=== PATIENT | female | born 1995 | race Two or more races ===

== ENCOUNTER 2019-02-21 18:29 | Emergency (ER) | payer SELFPAY | END 2019-02-21 21:13 | disposition left against medical advice (07) | LOC: JER 18:29 ==

== ENCOUNTER 2019-05-30 12:35 | Emergency (ER) | payer SELFPAY ==
[2019-05-30 12:43] VITALS: BMI 24.2
--- NOTE | 2019-05-30 13:46 | PDOC ---
History of Present Illness - General Chief Complaint: Pain Stated Complaint: STOMACH PAIN 4 WEEKS Time Seen by Provider: 05/30/19 13:13 History Source: Patient Exam Limitations: No Limitations Past History - Travel Traveled outside of the country in the last 30 days: No Close contact w/someone who was outside of country & ill: No - Past Medical History Allergies/Adverse Reactions: Allergies Allergy/AdvReac Type Severity Reaction Status Date / Time No Known Allergies Allergy Verified 05/30/19 12:43 COPD: No - Psycho Social/Smoking Cessation Hx Smoking History: Never smoked Information on smoking cessation initiated: No Hx Alcohol Use: No Drug/Substance Use Hx: No Review of Systems - Review of Systems Able to Perform ROS?: Yes Comments:: 05/30/19 15:35 CONSTITUTIONAL: Absent: fever, chills, diaphoresis, generalized weakness, malaise, loss of appetite HEENT: Absent: rhinorrhea, nasal congestion, throat pain, throat swelling, difficulty swallowing, mouth swelling, ear pain, eye pain, visual Changes CARDIOVASCULAR: Absent: chest pain, loss of consciousness, palpitations, irregular heart rate, peripheral edema RESPIRATORY: Absent: cough, shortness of breath, dyspnea with exertion, orthopnea, wheezing, stridor, hemoptysis GASTROINTESTINAL: Present: Abdominal pain Absent: abdominal distension, nausea, vomiting, diarrhea , constipation, melena, hematochezia GENITOURINARY: Absent: dysuria, frequency, urgency, hesitancy, hematuria, flank pain, genital pain MUSCULOSKELETAL: Absent: myalgia, arthralgia, joint swelling SKIN: Absent: rash, itching, pallor HEMATOLOGIC/IMMUNOLOGIC: Absent: easy bleeding, easy bruising, lymphadenopathy, frequent infections ENDOCRINE: Absent: unexplained weight gain, unexplained weight loss, heat intolerance, cold intolerance NEUROLOGIC: Absent: headache, focal weakness or paresthesias, dizziness, unsteady gait, seizure, mental status changes, bladder or bowel incontinence PSYCHIATRIC: Absent: anxiety, depression, suicidal or homicidal ideation, hallucinations. Is the patient limited [employer] proficient: No *Physical Exam - Vital Signs Last Vital Signs Temp Pulse Resp BP Pulse Ox 98.1 F 91 H 18 105/71 100 05/30/19 12:41 05/30/19 12:41 05/30/19 12:41 05/30/19 12:41 05/30/19 12:41 - Physical Exam Comments: 05/30/19 15:36 GENERAL: Well developed, well nourished. Awake and alert. No acute distress. HEENT: Normocephalic, atraumatic. PERRLA, EOMI. No conjunctival pallor. Sclera are non- icteric. Moist mucous membranes. Oropharynx is clear. NECK: Supple. Full ROM. No JVD. Carotid pulses 2+ and symmetric, without bruits. No thyromegaly. No lymphadenopathy. CARDIOVASCULAR: Regular rate and rhythm. No murmurs, rubs, or gallops. Distal pulses are 2+ and symmetric. PULMONARY: No evidence of respiratory distress. Lungs clear to auscultation bilaterally. No wheezing, rales or rhonchi. ABDOMINAL: Tenderness palpation of the suprapubic area and left lower quadrant. Soft. Non -distended. No rebound or guarding. No organomegaly. Normoactive bowel sounds. MUSCULOSKELETAL Normal range of motion at all joints. No bony deformities or tenderness. No CVA tenderness. EXTREMITIES: No cyanosis. No clubbing. No edema. No calf tenderness. SKIN: Warm and dry. Normal capillary refill. No rashes. No jaundice. NEUROLOGICAL: Alert, awake, appropriate. Cranial nerves 2-12 intact. No deficits to light touch and temperature in face, upper extremities and lower extremities. No motor deficits in the in face, upper extremities and lower extremities. Normoreflexic in the upper and lower extremities. Normal speech. Toes are down- going bilaterally. Gait is normal without ataxia. PSYCHIATRIC: Cooperative. Good eye contact. Appropriate mood and affect. ED Treatment Course - LABORATORY CBC & Chemistry Diagram: 05/30/19 15:30 05/30/19 15:30 Medical Decision Making - Medical Decision Making 05/30/19 15:36 The patient is a 34-year-old female no past medical history, G1, P0, presents to the ER today after having a positive test at home. She states that she took the test yesterday. Her last menstrual cycle was 05/02/19. She states she has never been before. She notes that she has some lower abdominal fullness and discomfort. This started yesterday. She is not taking any vitamins at this time. Denies fevers, chills, nausea, vomiting, lightheadedness, dizziness. She presents for a evaluation. A/P: Early On exam patient with tenderness to palpation over the suprapubic area. Minimal discomfort over the left lower quadrant. No vaginal bleeding Defer pelvic as patient is not bleeding. Basic labs including beta hCG sent Urine ordered Transvaginal ultrasound completed, pending results. Suspect no fetus to be seen at this time as she is probably 2 to 4 weeks . Explained this to the patient. Signout given to DARBY Schulz. Patient is pending blood, urine and ultrasound results. Will need PCP and PROFESSIONAL SERVICES CONSULTANT as she is new to the area Discharge - Discharge Information Problems reviewed: Yes Clinical Impression/Diagnosis: Early stage of Condition: Stable Disposition: HOME - Follow up/Referral Referrals: Andreia Newton MD [Staff Physician] - Alba Malave CNM [Certified Nurse Monorail Car Operator] - Zofia Infante MD [Staff Physician] - - Patient Discharge Instructions Patient Printed Discharge Instructions: DI for Abdominal Pain -- Early Additional Instructions: As discussed, you must return in 48 hours for a repeat blood test for continued monitoring of your . If you develop any vaginal bleeding, fever, persistent vomiting, or any new or worsening symptoms, please return to the ER. - Post Discharge Activity
[2019-05-30] MEDS ORDERED: ACETAMINOPHEN 325 MG TABLET (FP) PO ONE (13:47)
[2019-05-30 15:52] LABS: BASO % 0.8 % (0-2.0); EOS % 1.3 % (0-4.5); HEMATOCRIT 38.5 % (32.4-45.2); HEMOGLOBIN 12.6 GM/dL (10.7-15.3); LYMPH % 35.5 % (8-40); MCH 29.2 pg (25.7-33.7); MCHC 32.7 g/dl (32.0-36.0); MEAN CELL VOLUME 89.2 fl (80-96); MEAN PLT VOLUME 10.5 fl (7.5-11.1); MONO % 6.4 % (3.8-10.2); PLATELET COUNT 322 K/MM3 (134-434); RBC 4.31 M/mm3 (3.60-5.2); RDW 14.9 % (11.6-15.6)
[2019-05-30 16:01] LABS: INR 1.08 (0.83-1.09); PROTHROMBIN TIME (PATIENT) 12.8 SEC (9.7-13.0)
[2019-05-30 16:19] LABS: ALBUMIN 4.4 g/dl (3.4-5.0); BILIRUBIN,TOTAL 0.4 mg/dL (0.2-1); BLOOD UREA NITROGEN 14.1 mg/dL (7-18); CALCIUM 9.3 mg/dL (8.5-10.1); CREATININE 0.7 mg/dL (0.55-1.3); TOT PROT 7.7 g/dl (6.4-8.2)
[2019-05-30 16:28] VITALS: BP 105/68; PULSE 88; TEMP 97.7
--- NOTE | 2019-05-30 17:03 | PDOC ---
*Physical Exam - Vital Signs Last Vital Signs Temp Pulse Resp BP Pulse Ox 97.7 F 88 18 105/68 95 05/30/19 16:27 05/30/19 16:27 05/30/19 12:41 05/30/19 16:27 05/30/19 16:27 - Physical Exam Comments: 05/30/19 17:02 Sign-out received from outgoing ER provider Claudia. Pt interviewed and examined. Ancillary studies reviewed, awaiting labs. Patient beta 105. Patient likely in very early , will need repeat beta in 48 hours and f/ u with PCP/OB. ED Treatment Course - LABORATORY CBC & Chemistry Diagram: 05/30/19 15:30 05/30/19 15:30 - ADDITIONAL ORDERS Additional order review: Laboratory Results 05/30/19 05/30/19 05/30/19 15:30 15:30 15:30 PT with INR 12.80 INR 1.08 Sodium 136 Potassium 4.0 Chloride 106 Carbon Dioxide 24 Anion Gap 6 L BUN 14.1 Creatinine 0.7 Est GFR (CKD-EPI)AfAm 130.10 Est GFR (CKD-EPI)NonAf 112.25 Random Glucose 86 Calcium 9.3 Total Bilirubin 0.4 AST 8 L ALT 15 Alkaline Phosphatase 51 Total Protein 7.7 Albumin 4.4 Beta HCG, Quant Blood Type A NEGATIVE Antibody Screen Negative 05/30/19 15:30 PT with INR INR Sodium Potassium Chloride Carbon Dioxide Anion Gap BUN Creatinine Est GFR (CKD-EPI)AfAm Est GFR (CKD-EPI)NonAf Random Glucose Calcium Total Bilirubin AST ALT Alkaline Phosphatase Total Protein Albumin Beta HCG, Quant 105.7 Blood Type Antibody Screen 05/30/19 15:30 RBC 4.31 MCV 89.2 MCHC 32.7 RDW 14.9 MPV 10.5 Neutrophils % 56.0 Lymphocytes % 35.5 Monocytes % 6.4 Eosinophils % 1.3 Basophils % 0.8 Discharge - Discharge Information Problems reviewed: Yes Clinical Impression/Diagnosis: Early stage of Condition: Stable Disposition: HOME - Admission No - Follow up/Referral Referrals: Zofia Infante MD [Staff Physician] - Andreia Newton MD [Staff Physician] - Alba Malave CNM [Certified Nurse Tire Repairer] - - Patient Discharge Instructions Patient Printed Discharge Instructions: DI for Abdominal Pain -- Early Additional Instructions: As discussed, you must return in 48 hours for a repeat blood test for continued monitoring of your . If you develop any vaginal bleeding, fever, persistent vomiting, or any new or worsening symptoms, please return to the ER. - Post Discharge Activity
[2019-05-30 17:13] LABS: URINE APPEARANCE CLEAR; URINE BILIRUBIN NEGATIVE (NEGATIVE); URINE COLOR YELLOW; URINE GLUCOSE (UA) NEGATIVE (NEGATIVE); URINE KETONE TRACE (NEGATIVE); URINE LEUK ESTERASE NEGATIVE (NEGATIVE); URINE NITRITE NEGATIVE (NEGATIVE); URINE PROTEIN NEGATIVE (NEGATIVE); URINE UROBILINOGEN 0.2 mg/dL (0.2-1.0)
== END 2019-05-30 17:45 | disposition home or self-care (01) ==
LOC: JER 12:35
DX: O26.91 Pregnancy related conditions, unspecified, first trimester (principal)
CPT/HCPCS: 36415; 76817-TC; 80053; 81003; 84702; 85025; 85610; 86850; 86900; 86901; 99282-25

== ENCOUNTER 2019-06-02 12:21 | Emergency (ER) | payer SELFPAY ==
[2019-06-02 12:25] VITALS: BP 111/72; PULSE 96; TEMP 98; BMI 24.2
--- NOTE | 2019-06-02 13:45 | PDOC ---
History of Present Illness - General Chief Complaint: Revisit, Lab Variance Stated Complaint: BLOOD WORK Time Seen by Provider: 06/02/19 12:28 History Source: Patient Exam Limitations: No Limitations - History of Present Illness Initial Comments: 06/02/19 13:42 34-year-old female denies past medical history presents for repeat beta hCG. Came in May 30 for test. LMP May 02, 2019, beta hCG May 30, result -266. Denies vaginal bleeding, abdominal pain, pelvic pain , urinary complaints, chest pain, shortness of breath or any other complaints. Patient's mother is an OB physician in [place] who instructed her to take folic acid 400 mg daily which patient started taking yesterday. Patient does not have an OB physician at this time. ROS: GENERAL/CONSTITUTIONAL: No fever, chills, weakness, dizziness HEAD, EYES, EARS, NOSE AND THROAT: No changes in vision, No ear pain or discharge, No sore throat CARDIOVASCULAR: No chest pain RESPIRATORY: No shortness of breath or cough GASTROINTESTINAL: No pain, nausea, vomiting, diarrhea or constipation GENITOURINARY: No dysuria MUSCULOSKELETAL: No neck or back pain SKIN: No rash NEUROLOGIC: No headache, vertigo, loss of consciousness, or loss of sensation PE: GENERAL: well-appearing, NAD HEAD: NCAT EYES: Pupils equal, round and reactive to light, sclera anicteric, conjunctiva clear ENT: pharynx: no erythema, no exudate, uvula midline NECK: supple CHEST: nontender RESP: clear, no w/r/r CARDIO: rrr, no m/g/r ABD: +BS, soft, nontender, non distended BACK: no midline spinal ttp, no CVAT EXTREMITIES: Normal range of motion, no edema NEUROLOGICAL: Normal speech, normal gait SKIN: Warm, Dry Is this a multiple visit Asthma Patient?: No Past History - Past Medical History Allergies/Adverse Reactions: Allergies Allergy/AdvReac Type Severity Reaction Status Date / Time No Known Allergies Allergy Verified 06/02/19 12:24 Home Medications: Ambulatory Orders Prenat 115/Iron Fum/Folic/Dss [ 19 Tablet] 1 each PO DAILY #90 tablet COPD: No - Reproductive History (#): 0 Para: 1 - Psycho Social/Smoking Cessation Hx Smoking History: Never smoked Hx Alcohol Use: No Drug/Substance Use Hx: No *Physical Exam - Vital Signs Last Vital Signs Temp Pulse Resp BP Pulse Ox 98 F 96 H 18 111/72 100 06/02/19 12:22 06/02/19 12:22 06/02/19 12:22 06/02/19 12:22 06/02/19 12:22 ED Treatment Course - ADDITIONAL ORDERS Additional order review: Laboratory Results 06/02/19 12:59 Beta HCG, Quant 266.2 Medical Decision Making - Medical Decision Making 06/02/19 13:45 34-year-old female presents for repeat beta hCG Beta hCG result today 266, increased from 105 on May 30, 2019 OB follow-up information provided Patient understands she needs to call to make an OB appointment Instructed to take daily vitamins Return to ED if vaginal bleeding, pelvic pain, abdominal pain, chest pain, urinary symptoms or any complaint. Discharge - Discharge Information Problems reviewed: Yes Clinical Impression/Diagnosis: Qualifiers: Weeks of gestation: less than 8 weeks Qualified Code(s): Z3A.01 - Less than 8 weeks gestation of Condition: Stable Disposition: HOME - Follow up/Referral - Patient Discharge Instructions Additional Instructions: Take vitamin [address] Herrera (OB physician)[phone] on June 04 to schedule a follow-up appointment Return to ED if pelvic pain, abdominal cramping, vaginal bleeding, back pain or urinary complaints - Post Discharge Activity
== END 2019-06-02 14:00 | disposition home or self-care (01) ==
LOC: JERFT 12:21
DX: Z32.01 Encounter for pregnancy test, result positive (principal); O36.80X0 Pregnancy with inconclusive fetal viability, not applicable or unspecified; Z3A.01 Less than 8 weeks gestation of pregnancy
CPT/HCPCS: 36415; 84702; 99282-25